=== PATIENT | male | born 1980 | race Caucasian/White ===

== ENCOUNTER 2020-04-26 17:08 | Emergency (ER) | payer OTHER ==
[~2020-04-26] VITALS: Ht 172.7 cm; Wt 97.7 kg
[2020-04-26 17:13] VITALS: Ht 172.7 cm; Wt 97.7 kg
[2020-04-26] MEDS ORDERED: PROZAC10 MG PO (17:15)
[2020-04-26] MEDS ORDERED: FLOMAX0.4 MG PO (17:15)
[2020-04-26] MEDS ORDERED: OXYBUTYNIN CHLOR5 MG PO (17:15)
[2020-04-26] MEDS ORDERED: AMBIEN10 MG PO (17:15)
[2020-04-26] MEDS ORDERED: MINIPRESS 5 MG C5 MG PO (17:16)
[2020-04-26 17:43] LABS: BASOPHILS 0.3 % (0-2); EOSINOPHILS 3.1 % (0-7); HEMATOCRIT 40.8 % (42.0-54.0); HEMOGLOBIN 13.3 g/dL (13.5-17.5); IMMATURE GRANULOCYTES 0.4 % (0-5); LYMPHOCYTES 35.9 % (15-50); MCHC 32.6 g/dL (31.0-37.0); MCV 88.9 fL (80.0-100.0); MEAN PLATELET VOLUME 10.3 fL (7.4-10.4); MONOCYTES 9.7 % (2-11); NEUTROPHILS 50.6 % (40-80); PLATELET COUNT 242 10x3/uL (130-400); RBC 4.59 10x6/uL (4.20-6.10); RDW 13.1 % (11.5-14.5); WBC 7.9 10x3/uL (4.8-10.8)
[2020-04-26 17:55] LABS: CALC OSMOLALITY 277 mosm/kg (275-300); CALCIUM 8.4 mg/dL (8.5-10.1); CARBON DIOXIDE 30.6 mmol/L (21.0-32.0); CHLORIDE - SERUM 105 mmol/L (98-107); CREATININE - SERUM 1.2 mg/dL (0.6-1.3); GLUCOSE 113 mg/dL (74-106); POTASSIUM - SERUM 4.3 mmol/L (3.5-5.1); SODIUM 139 mmol/L (136-145); UREA NITROGEN 11 mg/dL (7-18); eGFR NON AFRICAN AMERICAN 71 mL/min (90-120)
[2020-04-26 17:58] LABS: APTT 28.2 SECONDS (22.8-39.4); INR 0.93 (0.85-1.17); PROTIME 12.4 SECONDS (11.6-15.0)
[2020-04-26 17:59] LABS: D-DIMER-QUANTITATIVE 0.3 ug/mLFEU (0.20-0.54)
[2020-04-26 18:13] LABS: ALBUMIN 3.7 g/dL (3.4-5.0); ALKALINE PHOSPHATASE 109 U/L (30-120); ALT (SGPT) 85 U/L (10-68); BILIRUBIN - TOTAL 0.17 mg/dL (0.2-1.3); CKMB 1.4 U/L (0.0-3.6); CREATINE KINASE 229 UL (21-232); MAGNESIUM - SERUM 2.2 mg/dL (1.8-2.4); PROTEIN - SERUM 7.2 g/dL (6.4-8.2); TROPONIN-I < 0.017 ng/mL (0.000-0.060)
[2020-04-26 20:35] LABS: CKMB 1.5 U/L (0.0-3.6); CREATINE KINASE 231 UL (21-232)
[2020-04-26 20:44] LABS: TROPONIN-I < 0.017 ng/mL (0.000-0.060)
[2020-04-26 21:06] VITALS: BP 130/88
== END 2020-04-26 21:06 | disposition home or self-care (01) ==
LOC: D.ER 17:08
PROVIDERS: Family Medicine
DX: R07.9 Chest pain, unspecified (principal)